=== PATIENT | female | born 1985 | race Caucasian/White ===

== ENCOUNTER 2018-11-14 14:51 | Emergency (ER) | payer SELFPAY ==
[~2018-11-14] VITALS: Ht 160 cm; Wt 110.0 kg
[~2018-11-14 14:51] MED LIST: AUGMENTIN875 MG OR; BACTROBAN2 % EX; LORTAB 5 OR; PERIDEX0.12 % MT; PNV; TAM75CAP PO; ULTRAM50 MG OR; ZOFRAN4 MG/TAB PO; no home meds
[2018-11-14] MEDS ORDERED: BACTRIM DS1 TAB PO (15:11)
[2018-11-14 16:36] VITALS: BP 123/75
== END 2018-11-14 16:36 | disposition home or self-care (01) | DRG 566 ==
LOC: ED 14:51
DX: M21.621 Bunionette of right foot (principal)

== ENCOUNTER 2019-03-01 11:08 | Emergency (ER) | payer SELFPAY ==
[~2019-03-01] VITALS: Ht 160 cm; Wt 127.0 kg
[~2019-03-01 11:08] MED LIST changes: +BACTRIM DS1 TAB PO
[2019-03-01] MEDS ORDERED: FLEXERIL PO (13:05)
[2019-03-01] MEDS ORDERED: TORADOL PO (13:05)
[2019-03-01 13:10] VITALS: BP 131/79
== END 2019-03-01 13:10 | disposition home or self-care (01) | DRG 605 ==
LOC: ED 11:08
DX: S80.02XA Contusion of left knee, initial encounter (principal); S60.212A Contusion of left wrist, initial encounter; S40.012A Contusion of left shoulder, initial encounter; W01.0XXA Fall on same level from slipping, tripping and stumbling without subsequent striking against object, initial encounter